=== PATIENT | male | born 1980 | race Caucasian/White ===

== ENCOUNTER → 2022-08-24 14:08 | Outpatient (CLI) | payer OTHER, SELFPAY | PROVIDERS: PCP Nurse Practitioner; Visit Provider Nurse Practitioner | DX: J40 Bronchitis, not specified as acute or chronic (principal); R05.9 Cough, unspecified ==

== ENCOUNTER → 2022-08-24 15:20 | Outpatient (CLI) | payer OTHER, SELFPAY ==
--- NOTE | 2022-08-24 15:27 | XR_ITS ---
FINAL REPORT CLINICAL HISTORY: bronchitis, cough FINDINGS: There is no evidence of effusion or other pleural disease. The mediastinum has a normal appearance. There is a right Port-A-Cath present with its tip in the superior vena cava. The cardiac silhouette is unremarkable. IMPRESSION: Unremarkable chest exam. Reviewed, Interpreted and Dictated by Shannen Gonzales MD Transcribed by Holly Crawford Authenticated and [facility] [place]
== END ==
PROVIDERS: PCP Nurse Practitioner; Visit Provider Nurse Practitioner
DX: R05.9 Cough, unspecified (principal); J40 Bronchitis, not specified as acute or chronic; J06.9 Acute upper respiratory infection, unspecified
CPT/HCPCS: 71046; 87635; C9803; U0003; U0005

== ENCOUNTER → 2023-01-17 08:45 | Outpatient (CLI) | payer OTHER, SELFPAY ==
[2023-01-17 17:45] LABS: Influenza A, PCR Not Detected (NotDetected); Influenza B, PCR Not Detected (NotDetected)
[2023-01-17 18:32] LABS: Coronavirus 19, PCR Detected (NotDetected)
== END ==
PROVIDERS: PCP Nurse Practitioner; Visit Provider Nurse Practitioner
DX: U07.1 COVID-19 (principal); R50.9 Fever, unspecified; R51.9 Headache, unspecified; R09.81 Nasal congestion; R05.9 Cough, unspecified; R30.0 Dysuria
CPT/HCPCS: 87086; 87636

== ENCOUNTER 2023-05-03 21:25 | Outpatient (CLI) | payer OTHER, SELFPAY ==
[2023-05-03 19:14] LABS: Adenovirus,PCR Not Detected (NotDetected); Coronavirus 19, PCR Not Detected (NotDetected); Coronavirus 229E Not Detected (NotDetected); Coronavirus NL63 Not Detected (NotDetected); Coronovirus HKU1,PCR Not Detected (NotDetected); Human Metapneumovirus Not Detected (NotDetected); Influenza A, PCR Not Detected (NotDetected); Influenza AH1, 2009 Not Detected (NotDetected); Influenza AH1, PCR Not Detected (NotDetected); Influenza AH3,PCR Not Detected (NotDetected); Influenza B, PCR Not Detected (NotDetected); Parainfluenza 1, PCR Not Detected (NotDetected); Parainfluenza 2, PCR Not Detected (NotDetected); Parainfluenza 3, PCR Not Detected (NotDetected); Parainfluenza 4, PCR Not Detected (NotDetected); Respiratory Syncytial Virus Not Detected (NotDetected); Rhinovirus/Enterovirus Not Detected (NotDetected)
[2023-05-03 22:45] LABS: Coronavirus OC43 Detected (NotDetected)
== END 2023-05-03 23:59 ==
LOC: LAB.DROPOF 21:25
PROVIDERS: PCP Nurse Practitioner; Visit Provider Nurse Practitioner
DX: R09.89 Other specified symptoms and signs involving the circulatory and respiratory systems (principal); R06.02 Shortness of breath; R06.2 Wheezing; R05.9 Cough, unspecified; R09.81 Nasal congestion; B97.29 Other coronavirus as the cause of diseases classified elsewhere
CPT/HCPCS: 87632; 87635

== ENCOUNTER 2023-11-01 13:15 | Outpatient (CLI) | payer OTHER, SELFPAY ==
[2023-11-01 13:22] LABS: Influenza A, PCR Not Detected (NotDetected); Influenza B, PCR Not Detected (NotDetected)
[2023-11-01 14:28] LABS: Alanine Aminotransferase 37 U/L (12-78); Albumin Level 4.2 g/dl (3.5-5.0); Albumin/Globulin Ratio 1.6 (1.1-1.8); Alkaline Phosphatase 110 U/L (38-126); Anion Gap 11.7 mEq/L (5-15); Aspartate Amino Transferase 37 U/L (17-59); Bilirubin,Total 0.6 mg/dl (0.2-1.3); Blood Urea Nitrogen 21 mg/dl (9-20); Calcium 9.2 mg/dl (8.4-10.2); Carbon Dioxide 28 mmol/L (22.0-30.0); Chloride 107 mmol/L (98-107); Estimated Glomerular Filt Rate 48 ml/min (>60); GFR (African American) 58 ML/MIN (>60); Globulin 2.6 g/dL (1.3-3.2); Glucose 98 mg/dl (74-100); Potassium 4.7 mmoL/L (3.5-5.1); Sodium 142 mmol/L (136-145); Total Protein,Serum 6.8 g/dl (6.3-8.2)
[2023-11-01 15:14] LABS: Coronavirus 19, PCR Detected (NotDetected)
== END 2023-11-01 23:59 | disposition home or self-care (01) ==
LOC: LAB 13:17
PROVIDERS: PCP Nurse Practitioner; Visit Provider Nurse Practitioner
DX: J06.9 Acute upper respiratory infection, unspecified (principal)
CPT/HCPCS: 80053; 87636